=== PATIENT | female | born 1990 | race Caucasian/White ===

== ENCOUNTER 2022-06-20 11:14 | Emergency (ER) | payer MEDICAID ==
[~2022-06-20] VITALS: Ht 160 cm; Wt 75.3 kg
[2022-06-20 11:29] VITALS: BP 142/62
[2022-06-20 12:10] LABS: EOSINOPHILS # (AUTO) 0.1 K/uL (0-0.4); EOSINOPHILS % (AUTO) 1.4 % (0.0-4.0); HEMATOCRIT 38.1 % (36-48); HEMOGLOBIN 13.1 g/dL (12.0-16.0); LYMPHOCYTES # (AUTO) 1.8 K/uL (2.5-16.5); LYMPHOCYTES % (AUTO) 41.3 % (20.5-51.1); MEAN CORPUSCULAR HEMOGLOBIN 32 pg (27-31); MEAN CORPUSCULAR HGB CONC 34 g/dL (33-37); MONOCYTES # (AUTO) 0.4 K/uL (0.8-1.0); NEUTROPHILS # (AUTO) 2.1 K/uL (1.8-7.7); NEUTROPHILS % (AUTO) 48.3 % (42.2-75.2); PLATELET COUNT (AUTO) 230 K/uL (140-450); RED BLOOD CELL COUNT(AUTO) 4.14 MIL/uL (4.20-5.40); RED CELL DISTRIBUTION WIDTH 13.1 % (11.6-13.7); WHITE BLOOD COUNT (AUTO) 4.4 K/uL (4.8-10.8)
[2022-06-20 12:28] LABS: ALBUMIN 3.6 g/dL (3.4-5.0); ANION GAP 10.7 (8-16); CARBON DIOXIDE 28.1 mmol/L (21-32); CREATININE 0.5 mg/dL (0.6-1.3); POTASSIUM 3.8 mmol/L (3.5-5.1); TOTAL BILIRUBIN 0.4 mg/dL (0.0-1.0)
--- NOTE | 2022-06-20 12:38 | NUR ---
31Y/O FEMALE BIB SELF C/O LOWER ABDOMINAL PAIN X1 WEEK. PER PT SHE TOOK AN PILL 3 MONTHS AGO AND WAS TOLD TO "NOT LIFT ANYTHING HEAVY". PT STATED THAT SHE HAS BEEN HAVING EXERCISE WELL THAT MAY HAVE TRIGERRED THE PAIN. STATING SHE LIFTED SOMETHING HEAVY LAST TUESDAY AND BELIEVES IT IS RELATED. REPORTS HEMATURIA TODAY, DENIES N/V/D. PMH: SCOLIOSIS NKDA
[2022-06-20 12:56] LABS: APPEARANCE,URINE SL CLOUDY (CLEAR); BILIRUBIN,URINE NEGATIVE (NEGATIVE); BLOOD, URINE NEGATIVE (NEGATIVE); COLOR,URINE YELLOW (YELLOW); LEUKOCYTE ESTERASE ,URINE 1+ (NEGATIVE); NITRITE, URINE NEGATIVE (NEGATIVE); UGLUCOSE NEGATIVE (NEGATIVE)
[2022-06-20 13:00] LABS: RBC,URINE 0-5 /HPF (0-5)
--- NOTE | 2022-06-20 13:05 | NUR ---
PT TAKEN TO CT SCAN VIA DI
[2022-06-20] MEDS ORDERED: IBUP-2213 PO (14:55)
[2022-06-20] MEDS ORDERED: CEPH-588 PO (14:55)
[2022-06-20 15:33] VITALS: BP 114/73
--- NOTE | 2022-06-20 15:34 | NUR ---
Patient discharged with v/s stable. Written and verbal after care instructions ABOUT OVARIAN CYST AND UTI given and explained. Patient alert, oriented and verbalized understanding of instructions. Ambulatory with steady gait. All questions addressed prior to discharge. ID band removed. Patient advised to follow up with PMD. Rx of KEFLEX, MOTRIN given. Patient educated on indication of medication including possible reaction and side effects. Opportunity to ask questions provided and answered.
== END 2022-06-20 15:34 | disposition home or self-care (01) ==
LOC: MED 11:14
DX: N39.0 Urinary tract infection, site not specified (principal); N83.201 Unspecified ovarian cyst, right side; Z79.01 Long term (current) use of anticoagulants; Z79.2 Long term (current) use of antibiotics
CPT/HCPCS: 36415; 74177; 80053; 81001; 81025; 83690; 84703; 85025; 87086; 99285; Q9967